=== PATIENT | female | born 1935 | race Caucasian/White ===

== ENCOUNTER 2018-10-31 18:26 | Observation (INO) ==
[2018-10-31 23:43] LABS: ALB/GLOB RATIO 1.7; ALBUMIN 4.3 g/dL (3.5-5.0); BASO# 0.04 X1000 (0.0-0.2); BASO% 0.5 % (0.0-0.8); CALCIUM 9.5 mg/dL (8.8-10.2); CREATININE 0.9 mg/dL (0.5-0.9); EOS# 0.04 X1000 (0.0-0.7); EOS% 0.5 % (0.0-10.0); HEMATOCRIT 42.5 % (37.0-47.0); LYMPH# 0.48 X1000 (1.2-3.4); LYMPH% 5.8 % (20.5-51.1); MCH 33.3 PG (27-31); MCHC 32.9 g/dL (33-37); MONO# 0.52 X1000 (0.11-0.59); MONO% 6.3 % (1.7-9.3); MPV 10.3 FL (7.4-10.4); NEUT# 7.24 X1000 (1.4-6.5); NEUT% 86.9 % (42.2-75.2); PLT 167 X1000 (130-400); POTASSIUM 4.1 mmol/L (3.5-5.1); RBC 4.21 XMIL (4.2-5.4); RDW 12.4 % (11.5-14.5); TOTAL BILIRUBIN 0.88 mg/dL (0.20-1.00); TOTAL PROTEIN 6.9 g/dL (6.3-8.3); WBC 8.32 X1000 (4.8-10.8)
[2018-10-31] MEDS ORDERED: SODIUM CHLORIDE 0.9% INJ ONE (23:53)
[2018-10-31] MEDS ORDERED: NS 1,000 ML IV ONE (23:53)
[2018-10-31] MEDS ORDERED: PHENERGAN IV ONE (23:53)
[2018-10-31] MEDS ORDERED: ZOFRAN IV ONE (23:54)
[2018-11-01] MEDS ORDERED: NS 1,000 ML IV ONE (00:10)
[2018-11-01 00:20] LABS: URINE SOURCE CLEAN CATCH
[2018-11-01 00:23] LABS: BILIRUBIN URINE NEGATIVE (NEGATIVE); BLOOD URINE NEGATIVE (NEGATIVE); COLOR YELLOW; GLUCOSE URINE NEGATIVE (NEGATIVE); KETONE URINE TRACE mg/dL (NEGATIVE); LEUKOCYTES URINE NEGATIVE (NEGATIVE); NITRITE URINE NEGATIVE (NEGATIVE); PH URINE 7.5; PROTEIN URINE TRACE mg/dL (NEGATIVE); SP GRAVITY URINE 1.015; TURBIDITY URINE CLEAR (CLEAR); UR EPITHELIAL CELLS <10 /HPF (<10); URINE BACTERIA NEGATIVE /HPF; URINE RBC <10 /HPF (<10); URINE WBC <10 /HPF (<10); UROBILINOGEN URINE NORMAL (NORMAL)
--- NOTE | 2018-11-01 01:02 | PROVIDER DOCUMENTATION ---
HPI-General Adult - General Chief Complaint: Vomiting Stated Complaint: VOMITING, FIRST CANCER TREATMENT TODAY Time Seen by Provider: 10/31/18 23:41 Source: patient Allergies/Adverse Reactions: Patient Allergies Allergy/AdvReac Type Severity Reaction Status Date / Time meperidine [From Demerol] Allergy Intermediate FLUSHING Verified 10/31/18 21:35 castor oil Allergy Mild HIVES Verified 10/31/18 21:35 Home Medications: Home Medication List Medication Instructions Recorded Confirmed Last Taken Type Levothyroxine Sodium 25 mcg PO DAILY 11/01/18 11/01/18 Unknown History Losartan Potassium 100 mg PO DAILY 11/01/18 11/01/18 Unknown History Pravastatin Sodium 20 mg PO DAILY 11/01/18 11/01/18 Unknown History Acetaminophen [Tylenol] 650 mg PO Q6H PRN PRN tablet 11/02/18 Unknown Rx - History of Present Illness -Gen Adult Nature of Presenting Problems: Mary Argueta is a 82 y.o. 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 she report fever at home 103 F. she denies other complaints. Review of Systems - Adult - REVIEW OF SYSTEMS - ADULT Constitutional: reports: chills, fever Eyes: reports: no symptoms reported Ears, Nose, Mouth & Throat: reports: no symptoms reported Cardiovascular: reports: no symptoms reported Respiratory: reports: no symptoms reported Gastrointestinal: reports: see HPI Genitourinary: reports: no symptoms reported Musculoskeletal: reports: no symptoms reported Past History - Adult - PAST MEDICAL HISTORY-ADULT Review of Records: reports: Old Records Reviewed, Nursing Assessment Review, Medications Reviewed, Social history reviewed & non-contributory. Physical Exam-General - PHYSICAL EXAM-ADULT Initial Vital Signs Reviewed: Yes - CONSTITUTIONAL General Appearance: alert, no apparent distress - EYES Eyes: PERRL/EOMI - HEAD, EARS, NOSE, MOUTH & THROAT HENMT: normocephalic/atraumatic, moist mucous membranes - NECK Neck: non-tender, full range of motion, supple - RESPIRATORY Respiratory: lungs clear, normal breath sounds, no pleuratic chest pain - CARDIOVASCULAR Cardiovascular: normal peripheral pulses, no edema, tachycardia - GASTROINTESTINAL (ABDOMEN) Abdominal Exam: normal bowel sounds, non tender, soft - SKIN Integumentary: normal color - NEUROLOGIC Neurologic: grossly normal Progress - PLAN OF CARE/RESULTS Progress/Plan/Lab Results: Vital Signs - 8 hr 10/31/18 18:37 10/31/18 21:15 10/31/18 22:02 Temperature 99.3 F 98.6 F Pulse Rate 106 H 91 H 92 H Pulse Rate [Sitting] Pulse Rate [Standing] Pulse Rate [Supine] Respiratory Rate 18 16 24 Blood Pressure 164/74 139/57 129/78 Blood Pressure [Sitting] Blood Pressure [Standing] Blood Pressure [Supine] O2 Sat by Pulse Oximetry 95 95 94 L 10/31/18 22:32 10/31/18 22:50 10/31/18 23:02 Temperature Pulse Rate 93 H 92 H 93 H Pulse Rate [Sitting] Pulse Rate [Standing] Pulse Rate [Supine] Respiratory Rate 24 25 H 28 H Blood Pressure 131/71 131/71 125/79 Blood Pressure [Sitting] Blood Pressure [Standing] Blood Pressure [Supine] O2 Sat by Pulse Oximetry 94 L 96 94 L 11/01/18 00:14 11/01/18 00:27 11/01/18 00:32 Temperature 99.3 F Pulse Rate 98 H 95 H 96 H Pulse Rate [Sitting] Pulse Rate [Standing] Pulse Rate [Supine] Respiratory Rate 20 18 21 Blood Pressure 126/67 126/67 133/61 Blood Pressure [Sitting] Blood Pressure [Standing] Blood Pressure [Supine] O2 Sat by Pulse Oximetry 97 96 96 11/01/18 00:34 11/01/18 00:35 Temperature Pulse Rate 95 H Pulse Rate [Sitting] 105 H Pulse Rate [Standing] 100 H Pulse Rate [Supine] 98 H Respiratory Rate 20 Blood Pressure 140/71 Blood Pressure [Sitting] 146/74 Blood Pressure [Standing] 140/71 Blood Pressure [Supine] 133/61 O2 Sat by Pulse Oximetry 97 Laboratory Results - last 24 hr 10/31/18 10/31/18 10/31/18 21:52 21:52 21:52 WBC 8.32 RBC 4.21 Hgb 14.0 Hct 42.5 MCV 101.0 H MCH 33.3 H MCHC 32.9 L RDW Std Deviation 12.4 Plt Count 167 MPV 10.3 Immature Gran % (Auto) 0.0 Neut % (Auto) 86.9 H Lymph % (Auto) 5.8 L [place] % (Auto) 6.3 Eos % (Auto) 0.5 Baso % (Auto) 0.5 Immature Gran # (Auto) 0.00 Neut # (Auto) 7.24 H Lymph # (Auto) 0.48 L [place] # (Auto) 0.52 Eos # (Auto) 0.04 Baso # (Auto) 0.04 Sodium 137 Potassium 4.1 Chloride 101 Carbon Dioxide 21 L Anion Gap 15 BUN 13 Creatinine 0.9 Estimated GFR/1.73 m2 60 BUN/Creatinine Ratio 14 Glucose 161 H Calculated Osmolality 277 Calcium 9.5 Total Bilirubin 0.88 AST 44 H ALT 47 H Alkaline Phosphatase 103 Total Protein 6.9 Albumin 4.3 Globulin 2.6 Albumin/Globulin Ratio 1.7 Plasma Lactate 3.5 H Urine Source Urine Color Urine Turbidity Urine pH Ur Specific [place] Urine Protein Ur Glucose (Stick) Ur Ketones (Stick) Urine Blood Urine Nitrite Urine Bilirubin Urobilinogen Dipstick Urine Leukocytes Urine WBC (Auto) Urine RBC (Auto) U Epithel Cells (Auto) Urine Bacteria (Auto) 11/01/18 00:10 WBC RBC Hgb Hct MCV MCH MCHC RDW Std Deviation Plt Count MPV Immature Gran % (Auto) Neut % (Auto) Lymph % (Auto) [place] % (Auto) Eos % (Auto) Baso % (Auto) Immature Gran # (Auto) Neut # (Auto) Lymph # (Auto) [place] # (Auto) Eos # (Auto) Baso # (Auto) Sodium Potassium Chloride Carbon Dioxide Anion Gap BUN Creatinine Estimated GFR/1.73 m2 BUN/Creatinine Ratio Glucose Calculated Osmolality Calcium Total Bilirubin AST ALT Alkaline Phosphatase Total Protein Albumin Globulin Albumin/Globulin Ratio Plasma Lactate Urine Source CLEAN CATCH Urine Color YELLOW Urine Turbidity CLEAR Urine pH 7.5 Ur Specific [place] 1.015 Urine Protein TRACE A Ur Glucose (Stick) NEGATIVE Ur Ketones (Stick) TRACE A Urine Blood NEGATIVE Urine Nitrite NEGATIVE Urine Bilirubin NEGATIVE Urobilinogen Dipstick NORMAL Urine Leukocytes NEGATIVE Urine WBC (Auto) <10 Urine RBC (Auto) <10 U Epithel Cells (Auto) <10 Urine Bacteria (Auto) NEGATIVE Orders Category Date Time Status ED: Orthostatic Vital Signs (E as directed Care 11/01/18 00:09 Active BLOOD CULTURE [BLDCUL] Stat Lab 10/31/18 23:37 Results CBC WITH DIFF [HEME] Stat Lab 10/31/18 21:52 Completed COMPREHENSIVE METABOLIC PANEL [CHEM] Stat Lab 10/31/18 21:52 Completed LACTATE, PLASMA [CHEM] Stat Lab 10/31/18 21:52 Completed UA [URINALYSIS W/POSS RFLX CULT] [URINALYSIS] Stat Lab 11/01/18 00:10 Completed 0.9% Sodium Chloride Inj [Ns] 1,000 ml Med 10/31/18 23:53 Discontinued IV 999 mls/hr 0.9% Sodium Chloride Inj [Ns] 1,000 ml Med 11/01/18 00:10 Active IV 999 mls/hr Ondansetron [Zofran] Med 10/31/18 23:54 Discontinued 8 mg IV NOW ONE Promethazine [Phenergan] Med 10/31/18 23:53 Discontinued 25 mg IV NOW ONE Sodium Chloride 0.9% Med 10/31/18 23:53 Discontinued 10 ml INJ NOW ONE Result Diagrams: 11/02/18 06:50 11/02/18 06:50 - CONSULTS/PCP/HOSPITALIST Notification #1 *Consult/PCP/Hospitalist*: Dr. Crowe Time Discussed: 02:25 Consult Disposition: Admit (Accepted.) Departure - Departure Date of Disposition Decision: 11/01/18 Time of Disposition Decision: 02:26 DIAGNOSIS: Vomiting Qualifiers: Vomiting type: unspecified Vomiting Intractability: intractable Nausea presence : unspecified Qualified Code(s): R11.10 - Vomiting, unspecified Hypotension Qualifiers: Hypotension type: unspecified hypotension type Qualified Code(s): I95.9 - Hypotension, unspecified Disposition: ADMITTED INPATIENT 09 Certified Medical Emergency: Emergent Condition: Stable - Critical Care Note This patient required my direct & personal management of CC.: No Attestation - Physician/ GUERLINE Attestation Patient care was provided by Advanced Practice Provider:: No The physician spent face to face time with patient:: Yes Advanced Practice Provider documentation review:: Supervising physician onsite and consulted in the evaluation and care of this patient. The physician did have a face to face encounter with the patient.
[2018-11-01] MEDS ORDERED: TYLENOL PO PRN (02:56)
[2018-11-01] MEDS ORDERED: ZOFRAN IV PRN (02:56)
[2018-11-01] MEDS ORDERED: TORADOL IV ONE (03:14)
[2018-11-01 03:44] LABS: HEMOGLOBIN A1C 5.6 % (4.8-6.0)
[2018-11-01] MEDS: NS 1,000 ML IV SCH ×2 (03:49→15:02)
--- NOTE | 2018-11-01 03:57 | HISTORY AND PHYSICAL ---
CHIEF COMPLAINT: Fever, nausea, vomiting. HISTORY OF PRESENT ILLNESS: This is an 82-year-old female with a history of hypertension, hypothyroidism, hyperlipidemia and oral cancer, who started Erbitux today. She is followed by Dr. Rosie Garcia. She started having fever and chills subjectively, 103 degrees Fahrenheit at home. She also had vomiting times 5 episodes. She denied any type of hematemesis. She also denied any bowel or bladder complaint. The patient was more lethargic than usual so the family brought her into the emergency room. Laboratory data was grossly normal. The patient did continue to be mildly febrile, tachycardic with a low oxygen saturation in the low 90s requiring oxygen. She will be admitted in observation status for further evaluation and treatment. PAST MEDICAL HISTORY: See HPI. PREVIOUS SURGICAL HISTORY: 1. Hysterectomy. 2. Cataract surgery. 3. 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 ALLERGIES: Demerol and castor oil. HOME MEDICATIONS: A list of home medications has not been reconciled. An order was placed for Nursing to reconcile home medications in the computer. FAMILY HISTORY: Patient had a sibling with cancer squamous cell. She was unsure of what type or location. SOCIAL HISTORY: She lives in [place] with another sister. No tobacco, alcohol or illicit drugs. REVIEW OF SYSTEMS: Fourteen point review of systems conducted with the patient. Pertinent positives listed above in the HPI. All other systems reviewed and found to be negative. PHYSICAL EXAMINATION: VITAL SIGNS: Temperature 99.9, pulse 93, respirations 20, blood pressure 108/60 , oxygen saturation 92% on 2 L nasal cannula. GENERAL: Lethargic 82-year-old female lying in the ER stretcher. Does arouse, answers all questions appropriately, is alert and oriented times 3. Family is at bedside. Patient is in no acute distress. HEENT: Head is atraumatic, normocephalic. Pupils equal, round, reactive to light. Extraocular eye movement intact. Sclerae are anicteric. Conjunctiva is pink. Oral mucosa is moist. NECK: Supple. No JVD. No thyromegaly. Trachea is midline. No carotid bruit. CARDIAC: S1, S2 appreciated. No murmurs, gallops, rubs. LUNGS: Clear to auscultation bilaterally. No rhonchi, wheezes, rales. Symmetric rise and fall with respirations. ABDOMEN: Soft, nondistended, nontender. Bowel sounds present all 4 quadrants, normoactive. No pulsatile mass. No organomegaly. EXTREMITIES: No clubbing, cyanosis, or edema. One-plus pedal pulses bilaterally. GENITOURINARY: No bladder distention. Patient voids. Otherwise deferred. NEUROLOGICAL: Lethargic but alert and oriented times 3. Cranial nerves II through XII appear to be grossly intact. DIAGNOSTIC DATA: CT of the thorax is pending. LABORATORY DATA: CBC within normal limits. Carbon dioxide 21. Glucose 161. AST 44. ALT 47. Plasma lactate 3.5. Otherwise, chemistry panel within normal limits. Urine unremarkable. ASSESSMENT AND PLAN: 1. Drug-induced febrile illness. Patient was started on Erbitux today by Dr. Rosie Garcia outpatient. It appears that this is a fairly common side effect of this medication. We will continue Tylenol. We will give a now dose of Motrin. Continue normal saline at 100 mL an hour. Admit in observation status. We will consult Dr. Rosie Garcia more of a courtesy consult to let her know that her patient is here. 2. Nausea and vomiting. Patient had multiple episodes of nausea and vomiting. Continue fluid repletion with normal saline. 3. Hypotension. This is secondary to 1 and 2. We will hold patient's home medications at this time once they are reconciled. She is on an antihypertensive. This can be restarted when appropriate. 4. History of hypertension. See above. 5. Hyperlipidemia. Restart statin when medications are reconciled. 6. Hypothyroidism. Check TSH. Restart Synthroid when medications are reconciled. Further recommendations per patient clinical course. Dictated by BOB Cole for Radha Crowe MD cc: BOB Cole MD Heather Shah, MD Independent exam was performed and assessment and discussion plan of care discussed with INTERVENTIONAL NEURORADIOLOGIST. I suspect that pt is volume depleted and probably causing hypotension. Will start on Motrin and Acetaminophen PRN for low grade fevers. Hold off BP meds unless SBP >150. Exam was notable for xerostomia and mild decreased skin turgor. MTDD
--- NOTE | 2018-11-01 09:33 | Diag Imaging Result Doc PS360 ---
EXAM: CT THORAX W/O CONTRAST INDICATION: fever, low o2 sat TECHNIQUE: This exam was performed using automated exposure control, adjustment of mA or kV according to patient size, and/or use of iterative reconstruction technique. COMPARISON: None. FINDINGS: There is mild bibasilar subsegmental dependent atelectasis. There is a calcified granuloma at the right lung base. The lungs are grossly clear, otherwise. There is no cardiomegaly. There are calcified mediastinal lymph nodes indicating prior granulomatous disease. There are a few coronary artery calcifications and there is patchy aortic calcification. No abnormal mediastinal fluid collections are appreciated. Bilateral extrarenal pelvises are noted incidentally. Limited views of the upper abdomen are essentially unremarkable, otherwise. IMPRESSION: 1.Mild bibasilar subsegmental atelectasis. 2.Incidental/nonacute findings detailed above. No definite acute pathology, otherwise. Electronically signed by Feliciano Dickerson 11/01/2018 9:31 AM
--- NOTE | 2018-11-01 17:01 | PROGRESS NOTE ---
DATE: 11/01/2018 Today Ms. Stewart refers to be doing fairly okay. Denies any more fever. No chills, no nausea, no vomiting, has not had any diarrhea. She feels a whole lot better. OBJECTIVE: Vitals: Blood pressure is 123/51, pulse is 85, respirations 18, temperature is 98.5 degrees, patient is saturating 95% on room air. General: Ms. Argueta is an 82 -year-old female she is in bed no distress. Mucosa is pink and moist. Anicteric. Acyanotic. Neck: Supple. There is some skin changes over the left lateral aspect of the neck with some induration consistent with the history of the neck cancer. Chest: Good air entry bilateral. No crepitations, no rhonchi. Cardiovascular: Regular rate and rhythm. There is no murmurs, no rubs, no gallops. Abdomen: Soft, nontender. Bowel sounds present. Extremities: No pedal edema. 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 There is no focal neurological deficit. LABORATORY DATA: WBC is 8.32, hemoglobin is 14.0, platelet count of 167,000. Chemistry is also reviewed unremarkable, this were all from yesterday. AST and ALT are minimally elevated. Patient is currently only on normal saline at 100 mL and p.r.n. medications. CT scan of the chest showed mild bibasilar segment atelectasis. ASSESSMENT: 1. Febrile illness likely due to medication side effects ( Erbitux). 2. Nausea and vomiting resolved. 3. Lactic acidosis secondary to dehydration. 4. History of head and neck cancer status post surgery and 1st dose of Erbitux, patient is also pending radiation therapy with Dr. Justice. So in general, I think Ms. Argueta is doing fairly okay, does not have any more fever, white cell count is normal. We still think this were all medication side effects however I think is reasonable to rule out possibility of infection. Blood cultures have been done we pending the report. If the culture is negative we will discharge Ms. Argueta tomorrow so she will follow up with her oncologist and her radiation oncologist. cc: MD NILES Nicholson
[2018-11-02] MEDS: NS 1,000 ML IV SCH (01:57)
[2018-11-02 07:26] LABS: BASO# 0.05 X1000 (0.0-0.2); BASO% 0.9 % (0.0-0.8); EOS# 0.49 X1000 (0.0-0.7); EOS% 8.6 % (0.0-10.0); HEMATOCRIT 37.5 % (37.0-47.0); LYMPH# 1.69 X1000 (1.2-3.4); LYMPH% 29.6 % (20.5-51.1); MONO# 0.61 X1000 (0.11-0.59); MONO% 10.7 % (1.7-9.3); MPV 10.2 FL (7.4-10.4); NEUT# 2.86 X1000 (1.4-6.5); NEUT% 50.2 % (42.2-75.2); PLT 135 X1000 (130-400); RBC 3.64 XMIL (4.2-5.4); RDW 12.4 % (11.5-14.5)
[2018-11-02 07:45] LABS: AGAP 9; BUN 7 mg/dL (8-22); CHLORIDE 104 mmol/L (98-107); COSMO 268; CREATININE 0.8 mg/dL (0.5-0.9); ESTIMATED GFR > 60; GLUCOSE 101 mg/dL (70-104); POTASSIUM 3.9 mmol/L (3.5-5.1); SODIUM 135 mmol/L (136-145); TCO2 22 mmol/L (25-35)
[2018-11-02 08:08] VITALS: BP 138/58
[2018-11-02 09:02] LABS: IRON SATURATION 9 %; TIBC 200 ug/dL; TOTAL IRON 17 ug/dL (49-151); UNBOUND IRON 183 ug/dL (112-346)
[2018-11-02 09:29] LABS: FERRITIN 273 ng/mL (13-150)
--- NOTE | 2018-11-03 04:24 | DISCHARGE SUMMARY ---
ADMISSION DATE: 11/01/2018 DISCHARGE DATE: 11/02/2018 DISPOSITION: Home. FOLLOW UP: Dr. Garcia. INVASIVE PROCEDURES DONE DURING THIS ADMISSION: None. IMAGING STUDIES OF SIGNIFICANCE: A CT scan of the chest showed mild bibasilar subsegmental atelectasis. ADMISSION DIAGNOSES: 1. Drug-induced febrile illness. 2. Nausea and vomiting. 3. Hypotension. 4. Dyslipidemia. DIAGNOSES AT TIME OF DISCHARGE: 1. Acute febrile illness likely due to medication side effects (Erbitux). 2. Nausea and vomiting resolved. 3. Clinical volume depletion resolved. 4. Lactic acidosis secondary to dehydration. 5. History of head and neck cancer status post surgery and 1st dose of Erbitux. The patient is pending evaluation by Dr. Justice for radiation therapy. 6. Hypothyroidism stable. 7. Dyslipidemia. 8. Hypertension controlled. 9. Relative iron deficiency anemia started relative iron deficiency. Patient to follow up with her oncologist. 10. Microcytosis with normal B12, folate and TSH concerning for possible MDS. The patient will follow up with her oncologist. DISCHARGE MEDICATIONS: 1. Levothyroxine 25 mcg p.o. daily. 2. Losartan 100 mg daily. 3. Pravastatin 20 mg daily. 4. Tylenol p.r.n. PRESENTING COMPLAINT: Fever, nausea and vomiting. HISTORY OF PRESENTING COMPLAINT: Ms. Argueta is an 82-year-old female who has recently been diagnosed with head and neck cancer. 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 She just got a one time dose of Erbitux with Dr. Garcia. Subsequently, she started having nausea and vomiting and did spike a temperature of 103 degrees so he she was brought into the emergency department. She was evaluated , and admitted for acute viral acute febrile illness workup. The patient was admitted and adequately hydrated since she was also volume depleted. Blood cultures were done which have come back 48 hours negative. The patient did not have any more fever during the entire hospital course. Blood pressures were normalized. All of her other vitals were normal. This morning she refers to feel a lot better, stronger, and afebrile. We do not really find any source of infection. Her initial chest CT scan did not show any pneumonia, and patient does not have any other intra-abdominal related symptoms so we think she is stable to be discharged. She is to follow up with her primary oncologist as well as her radiation oncologist. At the time of the discharge, her blood pressure is 138/58, pulses 80, respirations 18, and temperature is 98.1 degrees. Patient was saturating about 94% on room air. Ms Argueta is being discharged in very stable condition. The daughter and the son were at the bedside at the time of the encounter, and I did explain into details everything that we have done, the findings and the medical care. They all voiced understanding TIME SPENT FOR DISCHARGE: 35 minutes. cc: Dr. Radha Perez MD [facility]
== END 2018-11-02 11:53 | disposition home or self-care (01) ==
LOC: ED 18:26 → 3N 11-01 03:32 → INTOOBSV 11-01 03:32 → SUATTDRO 11-01 03:32
PROVIDERS: ATTEND Internal Medicine
CPT/HCPCS: 71250; 80048; 80053; 81001; 82533; 82607; 82728; 82746; 83036; 83540; 83550; 83605; 84443; 85025; 87040; 96361; 96374; 96375; 99285; J1885; J2405; J2550; J7030